=== PATIENT | female | born 1995 | race Hispanic/Latino ===

== ENCOUNTER 2019-12-11 05:07 | Inpatient (IN) | payer MEDICAID ==
[~2019-12-11] VITALS: Ht 154.9 cm; Wt 106.1 kg
[2019-12-11] VITALS (15 sets, daily range): BP systolic 91–118; BP diastolic 39–72
[2019-12-11] MEDS ORDERED: CEFAZOLIN SODIUM 1 GM VIAL IVP PRN (06:15)
[2019-12-11] MEDS ORDERED: LACTATED RINGERS 1000ML 1,000 ML IV SCH (06:15)
[2019-12-11 06:29] LABS: HEMATOCRIT 36.2 % (36-48); MEAN CORPUSCULAR HEMOGLOBIN 30.2 pg (27.0-33.0); MEAN CORPUSCULAR HGB CONC 33.7 g/dL (32.0-36.0); MEAN CORPUSCULAR VOLUME 89.6 fL (79-99); RED BLOOD CELL COUNT(AUTO) 4.04 MIL/uL (4.00-5.50); RED CELL DISTRIBUTION WIDTH 14.6 % (11.0-15.5)
[2019-12-11] MEDS ORDERED: CALDOLOR 800MG+NS 250ML 250 ML IV ONE ×2 (07:20→09:54)
[2019-12-11] MEDS ORDERED: CEFAZOLIN SODIUM 1 GM VIAL ONE (07:20)
[2019-12-11] MEDS ORDERED: PREN-218 PO (07:23)
[2019-12-11 07:42] LABS: APPEARANCE,URINE SL CLOUDY (CLEAR); BILIRUBIN,URINE NEGATIVE (NEGATIVE); COLOR,URINE YELLOW (YELLOW); GLUCOSE, URINE (UA) NEGATIVE (NEGATIVE); KETONES,URINE NEGATIVE (NEGATIVE); LEUKOCYTE ESTERASE ,URINE LARGE (NEGATIVE); NITRATE,URINE NEGATIVE (NEGATIVE); OCCULT BLOOD,URINE NEGATIVE (NEGATIVE); PROTEIN,URINE NEGATIVE (NEGATIVE); UROBILINOGEN,URINE 0.2 mg/dL (0.2-1.0)
[2019-12-11 08:06] LABS: BACTERIA,URINE Moderate /HPF (None Seen); RBC,URINE 0-1 /HPF (0-1); SQUAMOUS EPITHELIAL CELL,UR 30-50 /HPF (0-2)
[2019-12-11] MEDS ORDERED: OXYTOCIN 10 USP UNITS/ML ONE (09:09)
[2019-12-11] MEDS ORDERED: FENTANYL CITRATE PF 50 MCG/1 ML 2ML VIAL ONE (09:09)
[2019-12-11] MEDS ORDERED: ONDANSETRON HCL 4 MG/2 ML VIAL ONE (09:09)
[2019-12-11] MEDS ORDERED: DURAMORPH PF1 MG/ML 10ML AMP IV ONE (09:09)
[2019-12-11] MEDS ORDERED: CEFAZOLIN SODIUM 1 GM VIAL IVP ONE (09:13)
[2019-12-11] MEDS ORDERED: PHENYLEPHRINE HCL 10 MG/ML 1ML VIAL IV ONE (09:43)
[2019-12-11] MEDS ORDERED: MEPERIDINE-PF 75 MG/ML SYG IM PRN (10:15)
[2019-12-11] MEDS ORDERED: SODIUM CHLORIDE 0.9% 10 ML VIAL IVP PRN (10:15)
[2019-12-11] MEDS ORDERED: OXYTOCIN-LR 20 UNITS/1000 ML 1,000 ML IV PRN (10:15)
[2019-12-11] MEDS ORDERED: PROMETHAZINE HCL 25 MG/ML 1ML AMPULE IM PRN (10:15)
--- NOTE | 2019-12-11 11:30 | NUR ---
PATIENT ARRIVED TO UNIT VIA BED FROM PACU. NO PAIN REPORTED. FUNDUS FIRM, NO BLEEDING. DRESSING IS DRY AND INTACT. SCDS APPLIED TO BILATERAL LOWER EXTREMITIES. CALL LIGHT LEFT IN REACH.
[2019-12-11] MEDS ORDERED: DiphenhydrAMINE HCL 50 MG/ML VIAL IVP PRN (16:15)
[2019-12-11] MEDS ORDERED: NALOXONE HCL 0.4 MG/1 ML ML IVP PRN ×3 (16:15)
[2019-12-11] MEDS ORDERED: ONDANSETRON HCL 4 MG/2 ML VIAL IVP PRN (16:15)
[2019-12-11] MEDS: CALDOLOR 800MG+NS 250ML 250 ML IV SCH (18:16)
[2019-12-11] MEDS: DEXTROSE 5 %-0.45 % NACL 1,000 ML IV PRN (18:20)
[2019-12-12] MEDS: CALDOLOR 800MG+NS 250ML 250 ML IV SCH (02:34)
[2019-12-12] MEDS: DEXTROSE 5 %-0.45 % NACL 1,000 ML IV PRN (02:38)
[2019-12-12 03:28] VITALS: BP 96/53
--- NOTE | 2019-12-12 06:15 | NUR ---
SHIRA VEGAS DC'D, CATHETER TIP INTACT. PT. UP IN CHAIR BY MANNY (PCP). INST TO CALL FOR ASSIST BEFORE GETTING UP TO BR; VERBALIZED UNDERSTANDING, Addendum: 12/12/19 at 0623 by ROGER FLOYD RN RN Amended: Links added.
[2019-12-12 07:02] LABS: HEMATOCRIT 34.7 % (36-48); MEAN CORPUSCULAR HEMOGLOBIN 30.8 pg (27.0-33.0); MEAN CORPUSCULAR HGB CONC 33.1 g/dL (32.0-36.0); RED BLOOD CELL COUNT(AUTO) 3.73 MIL/uL (4.00-5.50); RED CELL DISTRIBUTION WIDTH 14.7 % (11.0-15.5); WHITE BLOOD COUNT (AUTO) 7.2 K/uL (4.8-10.8)
[2019-12-12 07:56] VITALS: BP 93/64
[2019-12-12 08:09] LABS: HEPATITIS Bs ANTIGEN SCREEN P Negative (Negative)
[2019-12-12] MEDS ORDERED: SIMETHICONE 80 MG TAB.CHEW PO PRN (08:45)
[2019-12-12] MEDS ORDERED: BISACODYL 10 MG SUPP.RECT RC PRN (08:45)
[2019-12-12] MEDS ORDERED: HYDROCODONE/ACETAMINOPHEN 5/325 MG TAB PO PRN (08:45)
[2019-12-12] MEDS ORDERED: LANOLIN 30GM OINTMENT TP PRN (08:45)
[2019-12-12] MEDS ORDERED: ACETAMINOPHEN-CODEINE 300/30MG TAB PO PRN (08:45)
[2019-12-12] MEDS ORDERED: ACETAMINOPHEN EXTRA STRENGTH 500 MG TABLET PO PRN (08:45)
[2019-12-12] MEDS ORDERED: DOCUSATE SODIUM 100 MG CAP PO SCH (09:00)
[2019-12-12] MEDS ORDERED: IBUPROFEN 800 MG TAB ONE (09:25)
[2019-12-12] MEDS ORDERED: SIMETHICONE 80 MG TAB.CHEW ONE (09:25)
[2019-12-12] MEDS ORDERED: DOCUSATE SODIUM 100 MG CAP PO ONE (09:26)
[2019-12-12] MEDS ORDERED: IBUPROFEN 800 MG TAB PO SCH (10:15)
[2019-12-12 12:00] VITALS: BP 109/60
== END 2019-12-12 14:25 | disposition home or self-care (01) | DRG 540 ==
LOC: LDH 05:07 → EDSTATUS 09:00 → WSH 11:25
PROVIDERS: ADMIT Obstetrics & Gynecology; ATTEND Obstetrics & Gynecology
PROC: 10D00Z1 Extraction of Products of Conception, Low, Open Approach (ICD-10-PCS; principal; 2019-12-11 09:00)
DX: O34.211 Maternal care for low transverse scar from previous cesarean delivery (principal); O99.214 Obesity complicating childbirth; O69.81X0 Labor and delivery complicated by cord around neck, without compression, not applicable or unspecified; Z3A.38 38 weeks gestation of pregnancy; Z37.0 Single live birth
CPT/HCPCS: 36415; 59510; 81001; 85027; 86592; 86850; 86900; 86901; 87088; 87340; A4344; G0378; J0690; J1741; J2274; J2370; J2405; J2590; J3010; J7120